=== PATIENT | male | born 1985 | race Caucasian/White ===

== ENCOUNTER 2018-06-01 23:35 | Emergency (ER) | payer OTHER ==
[~2018-06-01] VITALS: Ht 160 cm
[2018-06-01 23:56] LABS: ABSOLUTE BASOPHILS 0.1 thou/uL (0.0-0.2); ABSOLUTE EOSINOPHILS 0.2 thou/uL (0.0-0.7); ABSOLUTE LYMPHOCYTES 3.9 thou/uL (0.8-5.3); ABSOLUTE MONOCYTES 1.1 thou/uL (0.0-1.2); ABSOLUTE NEUTROPHILS 7.2 thou/uL (1.6-8.1); BASOPHILS 0.5 %; EOSINOPHILS 1.4 %; HEMATOCRIT 40.8 % (42.0-52.0); HEMOGLOBIN 13.8 gm/dL (14.0-18.0); LYMPHOCYTES 31.3 %; MCH 30.3 pg (26.0-34.0); MCHC 33.9 g/dL (28.0-37.0); MCV 89.5 fL (80.0-100.0); MPV 8.5 fl. (7.2-11.1); NUCLEATED RBCS 0 /100WBC; PLATELET COUNT* 261 thou/uL (150-400); POLYS 57.8 %; RBC 4.56 mil/uL (4.50-6.00); RDW-CV 13.8 % (10.5-14.5); WBC 12.5 thou/uL (4.0-11.0)
[2018-06-02 00:01] LABS: CALCIUM 8.1 mg/dL (8.5-10.1)
[2018-06-02 00:03] LABS: POTASSIUM 2.9 mmol/L (3.5-5.1)
[2018-06-02 00:06] LABS: TOTAL BILIRUBIN 0.4 mg/dL (<0.1-1.0); TOTAL PROTEIN 7.5 g/dL (6.4-8.2)
[2018-06-02 02:00] LABS: BE -2.1 mmol/L (-2 to +3); HCO3 23.1 mmol/L (22.0-26.0); PCO2 41.1 mmHg (35.0-45.0); PO2 62.4 mmHg (75.0-100.0); pH 7.368 (7.340-7.450)
[2018-06-02 05:06] VITALS: BP 112/61
== END 2018-06-02 05:09 | disposition home or self-care (01) ==
LOC: M.ERS 23:35
PROVIDERS: Emergency Medicine
DX: F10.129 Alcohol abuse with intoxication, unspecified (principal); Y90.8 Blood alcohol level of 240 mg/100 ml or more; R11.2 Nausea with vomiting, unspecified